=== PATIENT | female | born 1950 | race Caucasian/White ===

== ENCOUNTER 2017-10-27 04:54 | Inpatient (IN) | payer OTHER, BC ==
[~2017-10-27] VITALS: Ht 157.5 cm; Wt 53.4 kg
[~2017-10-27 04:54] MED LIST: DIPHENHYDR12.5 MG/5 PO; FAMOTIDINE20 MG PO; MINIVELLE1 EAC1 TD; MUPIROCIN22 GM TP; PREDNISONE10 MG PO; SPIRIVA1 INHALATI IH; VIBRAMYCIN25 MG/5 ML PO
[2017-10-27 05:56] LABS: HEMATOCRIT 40.6 % (36.0-46.0); HEMOGLOBIN 13.7 G/DL (11.9-15.5); MCH 30.4 PG (29.0-34.0); MCHC 33.7 G/DL (30.0-36.0); MCV 90.2 FL (83-99); PLATELET COUNT 91 K/uL (156-360); RBC DIS.WIDTH-SD 39.9 % (39-53); WHITE BLOOD COUNT 3.6 K/uL (4.1-10.2)
[2017-10-27 05:57] LABS: CHLORIDE 102 mEq/L (99-109); SODIUM 135 mEq/L (136-147)
[2017-10-27 05:59] LABS: GLUCOSE 87 mg/dL (70-99)
[2017-10-27 06:03] LABS: CREATININE 1.3 mg/dL (0.6-1.3); GFR ESTIMATE (CALCULATED) 43 mL/min/; UREA NITROGEN (BUN) 14 mg/dL (9-23)
[2017-10-27 11:54] LABS: APPEARANCE SL.HAZY ((CLEAR)); BILIRUBIN NEGATIVE; BLOOD NEGATIVE; COLOR YELLOW ((YELLOW)); GLUCOSE (STRIP) NEGATIVE; KETONES 20; LEUKOCYTES NEGATIVE; NITRITE NEGATIVE; PROTEIN (STRIP) 30; SPECIFIC GRAVITY 1.018 (1.000-1.030); UROBILINOGEN 0.2 MG/DL (0.2-1.0)
[2017-10-27 11:59] LABS: BACTERIA RARE /HPF; EPITHELIAL CELLS 1+ /HPF; HYALINE CASTS 0-5 /LPF; MUCUS 2+ /LPF; RED BLOOD CELLS 0-5 /HPF (0-5); UCUL ADDED? NO; WHITE BLOOD CELLS 0-5 /HPF (0-5)
[2017-10-27 12:18] LABS: HEMATOCRIT 32.6 % (36.0-46.0); MCH 30.5 PG (29.0-34.0); MCHC 33.1 G/DL (30.0-36.0); MCV 92.1 FL (83-99); PLATELET COUNT 79 K/uL (156-360); RBC DIS.WIDTH-CV 12.2 % (11.8-14.6); RBC DIS.WIDTH-SD 41.3 % (39-53); WHITE BLOOD COUNT 3.2 K/uL (4.1-10.2)
[2017-10-27 12:19] LABS: HEMOGLOBIN 10.8 G/DL (11.9-15.5); RED BLOOD COUNT 3.54 M/uL (3.80-5.20)
[2017-10-27 12:21] LABS: CHLORIDE 111 mEq/L (99-109); POTASSIUM 3.8 mEq/L (3.7-5.4); SODIUM 137 mEq/L (136-147)
[2017-10-27 12:22] LABS: ALBUMIN 2.8 g/dL (3.2-4.8); MAGNESIUM 1.6 mg/dL (1.3-2.7)
[2017-10-27 12:24] LABS: GLUCOSE 83 mg/dL (70-99)
[2017-10-27] MEDS ORDERED: ASPIR-LOW81 MG PO (12:25)
[2017-10-27 12:26] LABS: TOTAL BILIRUBIN 0.2 mg/dL (0.0-1.0)
[2017-10-27 12:27] LABS: PHOSPHORUS 3.1 mg/dL (2.5-4.9)
[2017-10-27 12:28] LABS: ALKALINE PHOSPHATASE 79 IU/L (3-129); CREATININE 1.1 mg/dL (0.6-1.3); GFR ESTIMATE (CALCULATED) 52 mL/min/
[2017-10-27 12:29] LABS: AST (GOT) 29 IU/L (2-34); UREA NITROGEN (BUN) 13 mg/dL (9-23)
[2017-10-27 12:31] LABS: ALT (GPT) 11 IU/L (3-49)
[2017-10-27 17:43] VITALS: BP 93/51
[2017-10-27 19:51] VITALS: BP 112/56
[2017-10-27 23:50] VITALS: BP 145/67
[2017-10-28 04:40] VITALS: BP 122/56
[2017-10-28 06:49] LABS: HEMATOCRIT 32.3 % (36.0-46.0); HEMOGLOBIN 10.5 G/DL (11.9-15.5); MCHC 32.5 G/DL (30.0-36.0); MCV 92.3 FL (83-99); PLATELET COUNT 80 K/uL (156-360); RBC DIS.WIDTH-CV 12.7 % (11.8-14.6); RBC DIS.WIDTH-SD 42.8 % (39-53); WHITE BLOOD COUNT 3.4 K/uL (4.1-10.2)
[2017-10-28 07:12] LABS: CHLORIDE 110 MEQ/L (99-109); CREATININE 0.9 MG/DL (0.6-1.3); GFR ESTIMATE (CALCULATED) > 59 mL/min/; GLUCOSE 75 mg/dL (70-99); POTASSIUM 3.7 MEQ/L (3.7-5.4); SODIUM 137 MEQ/L (136-147); UREA NITROGEN (BUN) 10 mg/dL (9-23)
[2017-10-28 07:43] VITALS: BP 130/61
[2017-10-28 12:00] VITALS: BP 129/63
[2017-10-28 15:50] VITALS: BP 125/63
[2017-10-28 20:00] VITALS: BP 119/56
[2017-10-29 00:55] VITALS: BP 113/59; BP 139/67
[2017-10-29 08:09] VITALS: BP 119/58
[2017-10-29 09:54] LABS: HEMOGLOBIN 11.2 G/DL (11.9-15.5); MCH 29.6 PG (29.0-34.0); MCHC 32.9 G/DL (30.0-36.0); MCV 89.9 FL (83-99); PLATELET COUNT 70 K/uL (156-360); RBC DIS.WIDTH-CV 12.6 % (11.8-14.6); RBC DIS.WIDTH-SD 41.8 % (39-53); RED BLOOD COUNT 3.78 M/uL (3.80-5.20); WHITE BLOOD COUNT 2.9 K/uL (4.1-10.2)
[2017-10-29 10:21] LABS: CHLORIDE 107 MEQ/L (99-109); CREATININE 0.8 MG/DL (0.6-1.3); GFR ESTIMATE (CALCULATED) > 59 mL/min/; POTASSIUM 3.4 MEQ/L (3.7-5.4); SODIUM 136 MEQ/L (136-147); UREA NITROGEN (BUN) 9 mg/dL (9-23)
[2017-10-29 10:22] LABS: ABS NEUTROPHIL COUNT 2.2; ATYPICAL LYMPHOCYTE 4.5 %; BAND NEUTROPHILS 0.9 % (0-8.0); BASOPHILS 0.9 %; EOSINOPHIL ABS CT 0; GLUCOSE 113 mg/dL (70-99); LYMPHOCYTES 9.9 % (15.0-45.0); MONOCYTES 6.3 % (0-9.0); MYELOCYTES 0.9 %; PLAT.SUFFICIENCY DECREASED; SEG.NEUTROPHILS 76.6 % (46.0-76.0); SMUDGE CELLS 3.6
[2017-10-29 11:06] VITALS: BP 118/59
[2017-10-29] MEDS ORDERED: VENTOLIN HFA18 GM IH (11:34)
== END 2017-10-29 13:23 | disposition home or self-care (01) | DRG 641 ==
LOC: EME 04:54 → EDOF 10:54 → ENRESERV 10:55 → EDOF 11:18 → ENRESERV 11:30 → EDOF 11:31 → ENRESERV 12:27 → 5SOUTH 13:54
PROVIDERS: Hospitalist; Internal Medicine
DX: E86.1 Hypovolemia (principal); B34.9 Viral infection, unspecified; I95.89 Other hypotension; I10 Essential (primary) hypertension; F17.210 Nicotine dependence, cigarettes, uncomplicated; D69.59 Other secondary thrombocytopenia; J44.9 Chronic obstructive pulmonary disease, unspecified; Z90.710 Acquired absence of both cervix and uterus; Z85.43 Personal history of malignant neoplasm of ovary; Z88.0 Allergy status to penicillin; Z79.51 Long term (current) use of inhaled steroids; Z88.1 Allergy status to other antibiotic agents; Z79.82 Long term (current) use of aspirin; Z80.9 Family history of malignant neoplasm, unspecified
CPT/HCPCS: 71046; 80048; 80053; 81003; 83605; 83735; 84100; 85025; 85027; 87040; 94640; 99202; 99281; 99285; J1885; J7030